=== PATIENT | male | born 1980 | race Caucasian/White ===

== ENCOUNTER 2016-08-12 11:18 | Emergency (ER) | payer OTHER ==
--- NOTE | 2016-08-12 11:58 | XRAY Preliminary Report ---
Exam: XR Shoulder 3 View RT IMPRESSION: 1. Rotator cuff calcific tendinosis. [facility] SITE ID: [id number]
--- NOTE | 2016-08-12 12:00 | XRAY Report ---
EXAM: RIGHT SHOULDER RADIOGRAPHY EXAM DATE: 08/12/2016 11:50 AM. CLINICAL HISTORY: Right shoulder injury and pain. COMPARISON: None. TECHNIQUE: 3 views. FINDINGS: Bones: Normal. No fracture or bone lesion. Joints: The glenohumeral and acromioclavicular joints are normal. Soft tissues: Amorphous calcification adjacent to the greater tuberosity suggestive of calcific tendi nosis of the rotator cuff. IMPRESSION: 1. Rotator cuff calcific tendinosis. [facility] Referring Provider Line: [phone] SITE ID: [id number]
--- NOTE | 2016-08-12 14:02 | ED Physician Documentation ---
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 Onset of pain in shoulder and has continued with ROM.) Improved by: Rest Worsened by: Moving Associated symptoms: No: Weakness, Numbness, Tingling Contributing factors: No: Prior ortho surgery Similar symptoms before: Has not had sx before Recently seen: Not recently seen Review of Systems Skin: denies: Abrasion (s), Laceration (s) Musculoskeletal: denies: Neck pain, Back pain Neurologic: denies: Focal weakness, Numbness PD PAST MEDICAL HISTORY - Past Medical History Past Medical History: No Musculoskeletal: None - Past Surgical History Past Surgical History: No - Present Medications Home Medications: Ambulatory Orders Medication Instructions Recorded Confirmed Hydrocodone/Acetaminophen [[place] 1 each PO Q6H PRN #15 tablet 08/12/16 5-325 Tablet] Methocarbamol [Robaxin] 500 mg PO Q6H PRN #25 tablet 08/12/16 - Allergies Allergies/Adverse Reactions: Allergies Allergy/AdvReac Type Severity Reaction Status Date / Time No Known Drug Allergies Allergy Verified 08/12/16 11:32 - Social History Does the pt smoke?: Yes Smoking Status: Current every day smoker Does the pt drink ETOH?: Yes Does the pt have substance abuse?: No - Immunizations Immunizations are current?: Yes - POLST POLST Status: Full Code PD ED PE NORMAL - Vitals Vital signs reviewed: Yes - General General: Alert and oriented X 3, Well developed/nourished, Other (appears in pain with guarding ROM of the shoulder. ) - Neck Neck: Supple, no meningeal sign, No bony TTP, No adenopathy - Derm Derm: Normal color, Warm and dry - Extremities Extremities: Other (tender at anterior shoulder and at infrascapular area. No laxity noted on passive ROM. Active ROM strong but hurts with ext rotation, abduction, and extension c/w rotator cuff movements. ) - Neuro Neuro: Alert and oriented X 3, No motor deficit, No sensory deficit Results - Vitals Vitals: Vital Signs - 24 hr 08/12/16 08/12/16 11:29 14:41 Temperature 36.5 C 36.6 C Heart Rate 90 96 Respiratory 16 18 Rate Blood Pressure 142/91 H 144/92 H O2 Saturation 98 99 Oxygen O2 Source Room air - Rads (name of study) right shoulder Radiology: Prelim report reviewed (calcific tendinosis noted. No acute injury/ fractures.), EMP read contemporaneously PD MEDICAL DECISION MAKING - ED course Complexity details: reviewed results (prior calcific tendonitis, though he denies a particular injury nor ongoing problems with shoulder. Has pain on ROM now that would be c/w rotator cuff strain, could be partial tear. No noted laxity on passive ROM. ), re-evaluated patient (discussed importance of some mobilization right off to reduce any adhesive capsulitis. ), considered differential, d/w patient Departure - Departure Disposition: 01 Home, Self Care Clinical Impression: Rotator cuff (capsule) sprain Qualifiers: Encounter type: initial encounter Laterality: right Qualified Code(s): S43.421A - Sprain of right rotator cuff capsule, initial encounter Condition: Stable Record reviewed to determine appropriate education?: Yes Instructions: Rotator Cuff Injury, ED Tendinitis Rotator Cuff Follow-Up: Shayy Jenkins MD [Provider Admit Priv/Credential] - Prescriptions: Hydrocodone/Acetaminophen [[place] 5-325 Tablet] 1 each PO Q6H PRN #15 tablet PRN Reason: Pain Methocarbamol [Robaxin] 500 mg PO Q6H PRN #25 tablet PRN Reason: Spasms Comments: Guarded use of the right shoulder for the next week with limited use of the sling as needed for comfort. Be sure to have a sling off with gentle range of motion several times a day to prevent stiffening or adhesion of the joint. This will not happen with periodic range of motion. Ibuprofen or naproxen 2-3 times a day for the next week. Add methocarbamol if needed for spasms and hydrocodone if needed for pain. No overhead reaching, push pull, lifting with the right arm for a week and follow up with orthopedics in a week. Call tomorrow for an appointment. Forms: Activity restrictions Discharge Date/Time: 08/12/16 14:47
[2016-08-12 14:42] VITALS: BP 144/92
== END 2016-08-12 14:47 | disposition home or self-care (01) ==
LOC: ED 11:18
DX: S43.421A Sprain of right rotator cuff capsule, initial encounter (principal); X50.0XXA Overexertion from strenuous movement or load, initial encounter; Y93.89 Activity, other specified; Y92.89 Other specified places as the place of occurrence of the external cause; Y99.0 Civilian activity done for income or pay; M75.31 Calcific tendinitis of right shoulder; F17.200 Nicotine dependence, unspecified, uncomplicated
CPT/HCPCS: 99283

== ENCOUNTER 2017-03-23 08:34 | Outpatient (CLI) | payer OTHER ==
[2017-03-23 13:26] LABS: BASOPHILS % (AUTO) 0.7 %; EOSINOPHILS # (AUTO) 0.2 10^3/uL (0.0-0.7); EOSINOPHILS % (AUTO) 4.2 %; LYMPHOCYTES # (AUTO) 1.7 10^3/uL (1.5-3.5); LYMPHOCYTES % (AUTO) 36.7 %; MEAN CORPUSCULAR HEMOGLOBIN 31.7 pg (27.0-31.0); MEAN CORPUSCULAR HGB CONC 32.7 g/dL (32.0-36.0); MEAN CORPUSCULAR VOLUME 97.2 fL (80.0-94.0); MEAN PLATELET VOLUME 9.3 fL (7.4-11.4); MONOCYTES # (AUTO) 0.6 10^3/uL (0.0-1.0); MONOCYTES % (AUTO) 12.6 %; NEUTROPHILS # (AUTO) 2.1 10^3/uL (1.5-6.6); NEUTROPHILS % (AUTO) 45.8 %; PLT - PLATELET COUNT 180 10^3/uL (130-450); RED BLOOD COUNT 4.42 10^6/uL (4.70-6.10); RED CELL DISTRIBUTION WIDTH 15.8 % (12.0-15.0); WHITE BLOOD COUNT 4.5 x10^3/uL (4.8-10.8)
[2017-03-23 13:36] LABS: ALBUMIN 4.8 g/dL (3.2-5.5); ALBUMIN/GLOBULIN RATIO 1.9 (1.0-2.2); ALKALINE PHOSPHATASE 39 IU/L (42-121); ALT ALANINE AMINOTRANSFERASE 82 IU/L (10-60); AST ASPARTATE AMINOTRANSFERASE 65 IU/L (10-42); BILIRUBIN,TOTAL 0.4 mg/dL (0.2-1.0); BUN - BLOOD UREA NITROGEN 8 mg/dL (6-20); CALCIUM 9.6 mg/dL (8.5-10.3); CARBON DIOXIDE - CO2 26 mmol/L (21-32); CHLORIDE 104 mmol/L (101-111); CREATININE 0.9 mg/dL (0.6-1.2); GFR - MDRD 97 (>89); GLUCOSE 97 mg/dL (70-100); SODIUM 139 mmol/L (135-145); TOTAL PROTEIN 7.3 g/dL (6.7-8.2)
== END 2017-03-23 08:35 | disposition home or self-care (01) ==
LOC: LAB.F 08:34
PROVIDERS: ATTEND Nurse Practitioner Family
DX: F41.8 Other specified anxiety disorders (principal); F10.10 Alcohol abuse, uncomplicated
CPT/HCPCS: 36415; 80053; 84443; 85025

== ENCOUNTER 2023-05-21 07:15 | Outpatient (CLI) | payer BC ==
[2023-05-21 15:15] LABS: BASOPHILS % (AUTO) 0.8 %; EOSINOPHILS # (AUTO) 0.2 10^3/uL (0.0-0.7); EOSINOPHILS % (AUTO) 3.6 %; HCT - HEMATOCRIT 41.9 % (42.0-52.0); LYMPHOCYTES # (AUTO) 2.4 10^3/uL (1.5-3.5); LYMPHOCYTES % (AUTO) 48.8 %; MEAN CORPUSCULAR HEMOGLOBIN 29.4 pg (27.0-31.0); MEAN CORPUSCULAR HGB CONC 33.4 g/dL (32.0-36.0); MEAN CORPUSCULAR VOLUME 87.8 fL (80.0-94.0); MEAN PLATELET VOLUME 10.8 fL (7.4-11.4); MONOCYTES # (AUTO) 0.6 10^3/uL (0.0-1.0); MONOCYTES % (AUTO) 11.2 %; NEUTROPHILS # (AUTO) 1.8 10^3/uL (1.5-6.6); NEUTROPHILS % (AUTO) 35.4 %; PLT - PLATELET COUNT 206 10^3/uL (130-450); RED BLOOD COUNT 4.77 10^6/uL (4.70-6.10); RED CELL DISTRIBUTION WIDTH 13.6 % (12.0-15.0)
[2023-05-21 15:20] LABS: ESTIMATED AVERAGE GLUCOSE 100 mg/dL (70-100); HEMOGLOBIN A1c% 5.1 % (4.27-6.07)
[2023-05-21 15:49] LABS: ALBUMIN 4.6 g/dL (3.2-5.5); ALBUMIN/GLOBULIN RATIO 2.1 (1.0-2.2); ALKALINE PHOSPHATASE 52 IU/L (42-121); ALT ALANINE AMINOTRANSFERASE 26 IU/L (10-60); AST ASPARTATE AMINOTRANSFERASE 25 IU/L (10-42); BILIRUBIN,TOTAL 0.7 mg/dL (0.2-1.0); BUN - BLOOD UREA NITROGEN 17 mg/dL (6-20); CALCIUM 9.7 mg/dL (8.5-10.3); CARBON DIOXIDE - CO2 28 mmol/L (21-32); CHLORIDE 106 mmol/L (101-111); CHOL/HDL RATIO 3.4 (<5.0); CHOLESTEROL 181 mg/dL; CREATININE 0.9 mg/dL (0.6-1.3); GFR - MDRD 93 (>89); GLUCOSE 95 mg/dL (74-104); HDL CHOLESTEROL 53 mg/dL; LDL CHOLESTEROL,CALCULATED 109 mg/dL; LDL/HDL RATIO 2.1 (<3.6); POTASSIUM 4.3 mmol/L (3.5-4.5); SODIUM 139 mmol/L (135-145); TOTAL PROTEIN 6.8 g/dL (6.4-8.9); TRIGLYCERIDES 94 mg/dL (48-352); VLDL CHOLESTEROL 19 mg/dL
[2023-05-21 16:13] LABS: THYROID STIMULATING HORMONE 0.78 uIU/mL (0.34-5.60)
--- NOTE | 2023-05-21 20:16 | XRAY Report ---
PROCEDURE: Shoulder 2+V BL INDICATIONS: BILATERAL SHOULDER PAIN TECHNIQUE: 3 views of the shoulder were acquired. COMPARISON: None. FINDINGS: Bones: No fractures or dislocations. No suspicious bony lesions. Visualized ribs appear intact. Mild acromioclavicular degenerative narrowing. Soft tissues: No suspicious soft tissue calcifications. The visualized lungs are within normal limi ts. Calcific tendinitis. IMPRESSION: Mild acromioclavicular degenerative narrowing. Reviewed by: Ani Razo MD on 05/21/2023 8:14 PM PDT Approved by: Ani Razo MD on 05/21/2023 8:14 PM PDT Station ID: [id number]
== END 2023-05-21 07:16 | disposition home or self-care (01) ==
LOC: DI.S 07:15
PROVIDERS: ATTEND Physician Assistant Medical
DX: M25.812 Other specified joint disorders, left shoulder (principal); M25.811 Other specified joint disorders, right shoulder; Z13.9 Encounter for screening, unspecified; R35.0 Frequency of micturition; R63.1 Polydipsia; F41.8 Other specified anxiety disorders
CPT/HCPCS: 36415; 80053; 80061; 83036; 83721; 84153; 84443; 85025

== ENCOUNTER 2023-06-03 10:34 | Outpatient (CLI) | payer BC ==
--- NOTE | 2023-06-03 15:42 | Ultrasound Report ---
PROCEDURE: Testicle INDICATIONS: TESTICULAR MASS TECHNIQUE: Real-time scanning was performed of the scrotum and testicles, with image documentation. Color and p ulse Doppler interrogation was performed of both testicles. COMPARISON: None. FINDINGS: Right: Testicle is normal in size at 4.3 x 2.0 x 3.1 cm, and homogenous in echotexture. Epididymis is normal in overall size and morphology. No hydrocele. No varicoceles. Overlying scrotal skin is n ormal in thickness. The palpable lump corresponds to a small solid nodule medial to the right epididy mal tail measuring 0.8 x 0.7 x 1.1 cm. It has vascularity. Left: Testicle is normal in size at 3.8 x 2.1 x 2.9 cm, and homogeneous in echotexture. Epididymis is normal in overall size and morphology. No hydrocele. No varicoceles. There is a small left epidid ymal cyst measuring 0.8 x 0.8 x 1.0 cm Overlying scrotal skin is normal in thickness. Doppler: Color and pulse Doppler demonstrate normal and symmetric arterial flow in both testicles. IMPRESSION: 1. No testicular mass, testicular torsion, orchitis, or epididymitis 2. The palpable right scrotal lump is a small solid nodule with vascularity. Although there are very rarely malignant lesions outside of the testicle in the scrotum, urological consult should be obtaine d. Reviewed by: Garth Tang MD on 06/03/2023 3:41 PM PDT Approved by: Garth Tang MD on 06/03/2023 3:41 PM PDT Station ID: [id number]
== END 2023-06-03 10:35 | disposition home or self-care (01) ==
LOC: DI 10:34
PROVIDERS: ATTEND Physician Assistant Medical
DX: N49.2 Inflammatory disorders of scrotum (principal)

== ENCOUNTER 2023-10-14 10:36 | Outpatient (CLI) | payer BC ==
--- NOTE | 2023-10-14 14:39 | Ultrasound Report ---
PROCEDURE: Testicle INDICATIONS: TESTICULAR MASS TECHNIQUE: Real-time scanning was performed of the scrotum and testicles, with image documentation. Color and p ulse Doppler interrogation was performed of both testicles. COMPARISON: 06/03/2023 FINDINGS: Right: Testicle is normal in size at 4.0 x 1.5 x 2.7 cm, and homogenous in echotexture. Epididymis is normal in overall size and morphology. No hydrocele. No varicoceles. Overlying scrotal skin is n ormal in thickness. Left: Testicle is normal in size at 3.6 x 2.0 x 2.6 cm, and homogeneous in echotexture. Epididymis is normal in overall size and morphology. No hydrocele. No varicoceles. Overlying scrotal skin is n ormal in thickness. Doppler: Color and pulse Doppler demonstrate normal and symmetric arterial flow in both testicles. Right paratesticular mass anterior to the epididymis measuring 1.1 x 0.7 x 1.0 cm, previously 0.8 x 0 .7 x 1.1 cm. Internal vascularity is noted. Similar appearance compared to prior. IMPRESSION: Similar size and appearance of right paratesticular mass as described above. Reviewed by: Ezekiel Jensen MD on 10/14/2023 2:37 PM PDT Approved by: Ezekiel Jensen MD on 10/14/2023 2:37 PM PDT Station ID: [id number]
== END 2023-10-14 10:37 | disposition home or self-care (01) ==
LOC: DI 10:36
PROVIDERS: ATTEND Urology
DX: N50.9 Disorder of male genital organs, unspecified (principal)